=== PATIENT | male | born 1995 | race Caucasian/White ===

== ENCOUNTER 2018-05-03 22:25 | Emergency (ER) | payer BC ==
--- NOTE | 2018-05-03 23:03 | ER ---
Nurse's Notes [facility] Name: Reinaldo Caputo Age: 22 yrs Sex: Male : 1995 Arrival Date: 05/03/2018 Time: 22:32 Bed 7 Private MD: Diagnosis: Folliculitis;Tinea corporis Presentation: 05/03 22:44 Presenting complaint: Patient states: dryness, redness and swelling to head of penis. ed1 Also my urine stream is split. Transition of care: patient was not received from another setting of care. Onset of symptoms was May 03, 2018. Risk Assessment: Do you want to hurt yourself or someone else?. Initial Sepsis Screen: Does the patient meet any 2 criteria? No. Patient's initial sepsis screen is negative. Does the patient have a suspected source of infection? No. Patient's initial sepsis screen is negative. Care prior to arrival: None. 22:44 Method Of Arrival: Ambulatory ed1 22:44 Acuity: FELECIA 4 ed1 Historical: - Allergies: 22:57 Sulfa (Sulfonamide Antibiotics); jd3 - Home Meds: 22:57 None [Active]; jd3 - PMHx: 22:57 kidney problems(resolved); jd3 - PSHx: 22:57 right foot; jd3 - Immunization history:: Adult Immunizations up to date. - Social history:: Smoking status: unknown. - Ebola Screening: : Patient negative for fever greater than or equal to 101.5 degrees Fahrenheit, and additional compatible Ebola Virus Disease symptoms. - Family history:: not pertinent. - Hospitalizations: : No recent hospitalization is reported. Screenin:59 Abuse screen: Denies threats or abuse. Nutritional screening: No deficits noted. jd3 Tuberculosis screening: No symptoms or risk factors identified. Fall Risk Ambulatory Aid- None/Bed Rest/Nurse Assist (0 pts). Gait- Normal/Bed Rest/Wheelchair (0 pts) Mental Status- Oriented to own ability (0 pts). Total Sahni Fall Scale indicates No Risk (0-24 pts). Assessment: 22:57 General: Appears in no apparent distress. uncomfortable, Behavior is calm, cooperative, jd3 appropriate for age. Pain: Denies pain. Neuro: Level of Consciousness is awake, alert, obeys commands, Oriented to person, place, time, situation. Cardiovascular: Capillary refill < 3 seconds Patient's skin is warm and dry. Respiratory: Airway is patent Respiratory effort is even, unlabored, Respiratory pattern is regular, symmetrical. GI: No signs and/or symptoms were reported involving the gastrointestinal system. : Reports scaliness and dryness to genitals. EENT: No signs and/or symptoms were reported regarding the EENT system. Derm: Skin is intact, Skin is dry, Skin is normal, Skin temperature is warm. Musculoskeletal: Circulation, motion, and sensation intact. Range of motion: intact in all extremities. Vital Signs: 22:44 BP 148 / 87; Pulse 79; Resp 20; Temp 98.7(O); Pulse Ox 98% on R/A; Weight 117.93 kg; ed1 Height 5 ft. 11 in. (180.34 cm); 22:44 Body Mass Index 36.26 (117.93 kg, 180.34 cm) ed1 ED Course: 22:32 Patient arrived in ED. 22:40 Cruz Vivar MD is Attending Physician. rn 22:45 Triage completed. ed1 22:47 Arm band placed on. ed1 22:55 Samuel Amezcua RN is Primary Nurse. jd3 22:58 Patient has correct armband on for positive identification. Placed in gown. Bed in low jd3 position. Call light in reach. Side rails up X 1. Adult w/ patient. 23:17 No provider procedures requiring assistance completed. Patient did not have IV access jd3 during this emergency room visit. Administered Medications: 23:12 Drug: DiFLUcan 200 mg Route: PO; jd3 23:17 Follow up: Response: No adverse reaction jd3 23:12 Drug: Clindamycin 300 mg Route: PO; jd3 23:18 Follow up: Response: No adverse reaction jd3 Outcome: 23:02 Discharge ordered by . rn 23:17 Discharged to home ambulatory, with friend. jd3 23:17 Condition: stable 23:17 Discharge instructions given to patient, friend, Instructed on discharge instructions, follow up and referral plans. medication usage, Demonstrated understanding of instructions, follow-up care, medications, Prescriptions given X 2. 23:21 Patient left the ED. jd3 Signatures: Colleen Lim Cruz Vivar MD MD rn Riggs, Erika, RN RN ed1 Samuel Amezcua RN RN jd3
--- NOTE | 2018-05-03 23:03 | EDPHYS ---
Physician Documentation [facility] Name: Reinaldo Caputo Age: 22 yrs Sex: Male : 1995 Arrival Date: 05/03/2018 Time: 22:32 Bed 7 Private MD: ED Physician Cruz Vivar HPI: 05/03 22:58 This 22 yrs old Male presents to ER via Ambulatory with complaints of scrotal rn skin changes. 22:58 The patient presents with scrotal pain, of the left side, without swelling, with rn erythema. 22:59 Onset: The symptoms/episode began/occurred 1 week(s) ago. Associated signs and rn symptoms: Pertinent negatives: dysuria, fever, hematuria. Severity of symptoms: At their worst the symptoms were mild, in the emergency department the symptoms are unchanged. The patient has not experienced similar symptoms in the past. No trauma, + skin changes with scaliness, and erythema, no itching. No trauma. No penile discharge, no concern for STD.. Historical: - Allergies: 22:57 Sulfa (Sulfonamide Antibiotics); jd3 - Home Meds: 22:57 None [Active]; jd3 - PMHx: 22:57 kidney problems(resolved); jd3 - PSHx: 22:57 right foot; jd3 - Immunization history:: Adult Immunizations up to date. - Social history:: Smoking status: unknown. - Ebola Screening: : Patient negative for fever greater than or equal to 101.5 degrees Fahrenheit, and additional compatible Ebola Virus Disease symptoms. - Family history:: not pertinent. - Hospitalizations: : No recent hospitalization is reported. ROS: 22:59 Constitutional: Negative for fever, chills, and weight loss, : + scrotal erythema and rn scaliness Exam: 22:59 Constitutional: This is a well developed, well nourished patient who is awake, alert, rn and in no acute distress. Male : + left 3cm area of scrotal wall with mild erythema and dry skin, patchy, no skin sloughing, no fluctuance, no tenderness of testicles. Vital Signs: 22:44 BP 148 / 87; Pulse 79; Resp 20; Temp 98.7(O); Pulse Ox 98% on R/A; Weight 117.93 kg; ed1 Height 5 ft. 11 in. (180.34 cm); 22:44 Body Mass Index 36.26 (117.93 kg, 180.34 cm) ed1 MDM: 22:40 Patient medically screened. rn 22:59 Differential diagnosis: folliculitis, fungal infection. Data reviewed: vital signs, rn nurses notes, and as a result, I will discharge patient. Counseling: I had a detailed discussion with the patient and/or guardian regarding: the historical points, exam findings, and any diagnostic results supporting the discharge/admit diagnosis, the need for outpatient follow up, to return to the emergency department if symptoms worsen or persist or if there are any questions or concerns that arise at home. Special discussion: I discussed with the patient/guardian in detail that at this point there is no indication for admission to the hospital. It is understood, however, that if the symptoms persist or worsen the patient needs to return immediately for re-evaluation. Administered Medications: 23:12 Drug: DiFLUcan 200 mg Route: PO; jd3 23:17 Follow up: Response: No adverse reaction jd3 23:12 Drug: Clindamycin 300 mg Route: PO; jd3 23:18 Follow up: Response: No adverse reaction jd3 Disposition: 05/03/18 23:02 Discharged to Home. Impression: Folliculitis, Tinea corporis. - Condition is Stable. - Discharge Instructions: Folliculitis. - Prescriptions for Clindamycin HCl 300 mg Oral Capsule - take 1 capsule by ORAL route every 6 hours for 10 days; 40 capsule. Nystatin- Triamcinolone 100,000-0.1 unit/g-% Topical Cream - apply 1 application by TOPICAL route 2 times per day; 1 tube. - Medication Reconciliation Form, Thank You Letter, Antibiotic Education, Prescription Opioid Use form. - Follow up: Private Physician; When: As needed; Reason: Recheck today's complaints, Re-evaluation by your physician. - Problem is new. - Symptoms are unchanged. Signatures: Cruz Vivar MD MD rn Davies, Jonathon, RN RN jd3 Corrections: (The following items were deleted from the chart) 23:21 23:02 05/03/2018 23:02 Discharged to Home. Impression: Folliculitis; Tinea corporis. jd3 Condition is Stable. Forms are Medication Reconciliation Form, Thank You Letter, Antibiotic Education, Prescription Opioid Use. Follow up: Private Physician; When: As needed; Reason: Recheck today's complaints, Re-evaluation by your physician. Problem is new. Symptoms are unchanged. rn
[2018-05-03] MEDS ORDERED: CLINDAMYCIN HCL 150 MG CAP ONE (23:17)
[2018-05-03] MEDS ORDERED: FLUCONAZOLE 100 MG TAB ONE (23:17)
[2018-05-03 23:40] VITALS: BP 148/87; TEMP 98.7; O2SAT 98
== END 2018-05-03 23:21 | disposition home or self-care (01) ==
LOC: ER 22:25
DX: L73.9 Follicular disorder, unspecified (principal); B35.4 Tinea corporis
CPT/HCPCS: 99283

== ENCOUNTER 2018-07-20 03:15 | Emergency (ER) | payer BC ==
[2018-07-20] MEDS ORDERED: MORPHINE 2 MG/ML SYR ONE ×2 (03:42→05:23)
[2018-07-20] MEDS ORDERED: CIPROFLOXACIN 400mg IV 400 MG/200 ML BAG IV ONE (03:42)
[2018-07-20] MEDS ORDERED: ONDANSETRON 4 MG/2 ML VIAL ONE ×2 (03:42→07:28)
[2018-07-20] MEDS ORDERED: NA CHLORIDE 0.9% 1,000 ML ONE ×2 (03:42→05:23)
[2018-07-20 04:12] LABS: Absolute Lymphocytes (CBC) 0.6 K/uL (0.7-4.9); Absolute Monocytes 1.3 K/uL (0.1-1.3); Absolute Neutrophil 17.6 K/uL (1.8-8.0); Basophils % 0.2 % (0-1.3); Eosinophils % 0.5 % (0-4.4); Hematocrit 50.8 % (39.6-49.0); Lymphocytes % 3.3 % (15.3-44.8); MPV 10.5 fL (7.6-11.3); Monocytes % 6.5 % (3.3-12.3); RBC Red Blood Cell Count 5.63 M/uL (4.33-5.43)
[2018-07-20 04:29] LABS: Albumin 4.7 g/dL (3.4-5.0); Bilirubin Direct 0.3 mg/dL (0-0.2); Bilirubin Total 1.5 mg/dL (0.2-1.0); Potassium 3.9 mmol/L (3.5-5.1); Protein, Total 9.2 g/dL (6.4-8.2)
[2018-07-20 04:38] LABS: Platelet Estimate ADEQ; Urine White Blood Cell Casts OK
[2018-07-20 04:39] LABS: Blood Morphology Comment NOT SEEN (NOT SEEN)
[2018-07-20] MEDS ORDERED: MORPHINE 4 MG/ML SYR ONE (06:07)
[2018-07-20] MEDS ORDERED: FAMOTIDINE 20 MG/2 ML VIAL IV ONE (06:07)
--- NOTE | 2018-07-20 07:09 | RAD REPORT ---
EXAM DESCRIPTION: RAD - Abdomen Single View - 07/20/2018 4:12 am CLINICAL HISTORY: Abdominal pain, vomiting, diarrhea COMPARISON: None. FINDINGS: Bowel gas pattern is non-specific. No obstruction, free air or pneumatosis. Left pelvic c alcification is most likely a phlebolith. No significant bony findings IMPRESSION: Negative KUB examination for acute or significant finding.
--- NOTE | 2018-07-20 07:33 | EDPHYS ---
Physician Documentation [facility] Name: Reinaldo Caputo Age: 22 yrs Sex: Male : 1995 Arrival Date: 07/20/2018 Time: 03:17 Bed 16 Private MD: Stanley Goldman ED Physician Stuart Rodriguez HPI: 07/20 03:27 This 22 yrs old Male presents to ER via Ambulatory with complaints of cam Abdominal Cramping, Vomiting/Diarrhea. 03:27 The patient presents with abdominal pain in the upper abdomen, in the lower abdomen. cam Onset: The symptoms/episode began/occurred just prior to arrival, this morning. The patient presents to the emergency department with nausea, vomiting, diarrhea, that is continuous, abdominal pain. Onset: The symptoms/episode began/occurred just prior to arrival. Possible causes: unknown. The symptoms are aggravated by nothing. The symptoms are alleviated by nothing. remaining still. The symptoms do not radiate. Associated signs and symptoms: Pertinent positives: abdominal pain, diarrhea, nausea, vomiting. Associated signs and symptoms: none. Historical: - Allergies: 03:26 Sulfa (Sulfonamide Antibiotics); lp1 - Home Meds: 03:26 None [Active]; lp1 - PMHx: 03:26 kidney problems(resolved); lp1 - PSHx: 03:26 foot surgery; lp1 - Immunization history:: Adult Immunizations up to date. - Social history:: Smoking status: Patient/guardian denies using tobacco. - Ebola Screening: : No symptoms or risks identified at this time. - Family history:: not pertinent. ROS: 03:27 Constitutional: Negative for fever, chills, and weight loss, Eyes: Negative for injury, cam pain, redness, and discharge, ENT: Negative for injury, pain, and discharge, Neck: Negative for injury, pain, and swelling, Cardiovascular: Negative for chest pain, palpitations, and edema, Respiratory: Negative for shortness of breath, cough, wheezing, and pleuritic chest pain, Back: Negative for injury and pain, : Negative for injury, bleeding, discharge, and swelling, MS/Extremity: Negative for injury and deformity, Skin: Negative for injury, rash, and discoloration, Neuro: Negative for headache, weakness, numbness, tingling, and seizure, Psych: Negative for depression, anxiety, suicide ideation, homicidal ideation, and hallucinations, Allergy/Immunology: Negative for hives, rash, and allergies, Endocrine: Negative for neck swelling, polydipsia, polyuria, polyphagia, and marked weight changes, Hematologic/Lymphatic: Negative for swollen nodes, abnormal bleeding, and unusual bruising. 03:27 Abdomen/GI: Positive for abdominal pain, nausea and vomiting, diarrhea. Exam: 03:27 Constitutional: This is a well developed, well nourished patient who is awake, alert, cam and in no acute distress. Head/Face: Normocephalic, atraumatic. Eyes: Pupils equal round and reactive to light, extra-ocular motions intact. Lids and lashes normal. Conjunctiva and sclera are non-icteric and not injected. Cornea within normal limits. Periorbital areas with no swelling, redness, or edema. ENT: Nares patent. No nasal discharge, no septal abnormalities noted. Tympanic membranes are normal and external auditory canals are clear. Oropharynx with no redness, swelling, or masses, exudates, or evidence of obstruction, uvula midline. Mucous membranes moist. Neck: Trachea midline, no thyromegaly or masses palpated, and no cervical lymphadenopathy. Supple, full range of motion without nuchal rigidity, or vertebral point tenderness. No Meningismus. Chest/axilla: Normal chest wall appearance and motion. Nontender with no deformity. No lesions are appreciated. Cardiovascular: Regular rate and rhythm with a normal S1 and S2. No gallops, murmurs, or rubs. Normal PMI, no JVD. No pulse deficits. Respiratory: Lungs have equal breath sounds bilaterally, clear to auscultation and percussion. No rales, rhonchi or wheezes noted. No increased work of breathing, no retractions or nasal flaring. Back: No spinal tenderness. No costovertebral tenderness. Full range of motion. Male : Normal genitalia with no discharge or lesions. Skin: Warm, dry with normal turgor. Normal color with no rashes, no lesions, and no evidence of cellulitis. MS/ Extremity: Pulses equal, no cyanosis. Neurovascular intact. Full, normal range of motion. Neuro: Awake and alert, GCS 15, oriented to person, place, time, and situation. Cranial nerves II-XII grossly intact. Motor strength 5/5 in all extremities. Sensory grossly intact. Cerebellar exam normal. Normal gait. Psych: Awake, alert, with orientation to person, place and time. Behavior, mood, and affect are within normal limits. 03:27 Abdomen/GI: Inspection: abdomen appears normal, Bowel sounds: normal, Palpation: mild abdominal tenderness, in all quadrants, Liver: no appreciated palpable abnormalities, Hernia: not appreciated. Vital Signs: 03:27 BP 147 / 102; Pulse 113; Resp 18; Temp 97.6(O); Pulse Ox 96% on R/A; Weight 108.86 kg; lp1 Height 5 ft. 11 in. (180.34 cm); Pain 10/10; 03:47 BP 133 / 80; Pulse 110; Resp 18; Pulse Ox 96% on R/A; lp1 04:30 BP 130 / 84; Pulse 92; Resp 18; Pulse Ox 98% on 2 lpm NC; lp1 05:15 BP 125 / 81; Pulse 102; Resp 18; Pulse Ox 100% on 2 lpm NC; lp1 06:00 BP 119 / 78; Pulse 96; Resp 18; Pulse Ox 100% on 2 lpm NC; Pain 7/10; lp1 06:45 BP 124 / 78; Pulse 96; Resp 18; Pulse Ox 100% on 2 lpm NC; lp1 07:21 BP 124 / 78; Pulse 98; Resp 18; Pulse Ox 98% on R/A; sg 09:43 BP 116 / 72; Pulse 100; Resp 17; Pulse Ox 98% on R/A; sg 03:27 Body Mass Index 33.47 (108.86 kg, 180.34 cm) lp1 MDM: 03:18 Patient medically screened. [facility] 03:32 Data reviewed: vital signs, nurses notes, lab test result(s), radiologic studies, plain cam films. 07:30 Counseling: I had a detailed discussion with the patient and/or guardian regarding: the pm1 historical points, exam findings, and any diagnostic results supporting the discharge/admit diagnosis, lab results, radiology results, the need for outpatient follow up, to return to the emergency department if symptoms worsen or persist or if there are any questions or concerns that arise at home. 07:30 Special discussion: Based on the patient's Hx, exam, and Dx evaluation, there is no pm1 indication for emergent surgery or inpatient Tx. It is understood by the patient/guardian that if the Sx's persist or worsen they need to return immediately for re-evaluation. Discussed mono diagnosis and splenomegaly with patient. Patient is currently in the [employer]. Explained the importance of no activities with the risk of contact until resolution of splenomegaly and clearance by next MD. 07/20 03:25 Order name: Basic Metabolic Panel; Complete Time: 04:59 [facility] 07/20 03:25 Order name: CBC with Diff; Complete Time: 04:59 [facility] 07/20 03:25 Order name: Creatinine for Radiology; Complete Time: 04:59 [facility] 07/20 03:25 Order name: Hepatic Function; Complete Time: 04:59 [facility] 07/20 03:25 Order name: Lipase; Complete Time: 04:59 [facility] 07/20 04:12 Order name: Abdomen Single View; Complete Time: 07:14 [facility] 07/20 04:39 Order name: CBC Smear Scan [facility] 07/20 04:59 Order name: CT Abd/Pelvis - W/Contrast [facility] 07/20 06:04 Order name: US Abdomen Limited; Complete Time: 08:21 [facility] 07/20 06:17 Order name: [place] Screen Profile; Complete Time: 07:14 pm1 07/20 03:25 Order name: IV Saline Lock; Complete Time: 03:46 [facility] 07/20 03:25 Order name: Labs collected and sent; Complete Time: 03:46 [facility] Administered Medications: 03:45 Drug: NS 0.9% 1000 ml Route: IV; Rate: 1 bolus; Site: left antecubital; lp1 04:45 Follow up: IV Status: Completed infusion; IV Intake: 1000ml lp1 03:45 Drug: morphine 2 mg Route: IVP; Site: left antecubital; lp1 04:15 Follow up: Response: Pain is decreased lp1 03:46 Drug: Zofran 4 mg Route: IVP; Site: left antecubital; lp1 04:15 Follow up: Response: Nausea is decreased lp1 04:00 Drug: NS 0.9% 1000 ml Route: IV; Rate: 1 bolus; Site: left antecubital; lp1 05:38 Follow up: IV Status: Completed infusion; IV Intake: 1000ml lp1 04:09 Drug: Cipro 400 mg Volume: 200 ml; Route: IVPB; Infused Over: 60 mins; Site: left lp1 antecubital; 05:17 Follow up: Response: No adverse reaction; IV Status: Completed infusion jd3 05:16 Drug: morphine 2 mg Route: IVP; Site: left antecubital; jd3 05:38 Follow up: Response: Pain is decreased lp1 05:16 Drug: NS 0.9% 1000 ml Route: IV; Rate: 1 bolus; Site: left antecubital; jd3 06:49 Follow up: IV Status: Completed infusion; IV Intake: 1000ml lp1 06:03 Drug: morphine 4 mg Route: IVP; Site: left antecubital; lp1 06:30 Follow up: Response: Pain is decreased lp1 06:03 Drug: Pepcid 20 mg Route: IVP; Site: left antecubital; lp1 06:30 Follow up: Response: No adverse reaction lp1 07:18 Drug: Zofran 4 mg Route: IVP; Site: left antecubital; sg 07:30 Follow up: Response: No adverse reaction; Nausea unchanged; Vomiting unchanged sg 07:50 Drug: Phenergan 12.5 mg Route: IVP; Site: left antecubital; sg 08:26 Drug: Bentyl 20 mg Route: PO; sg Disposition: 15:35 Co-signature as Attending Physician, Stuart Rodriguez MD I agree with the assessment and cam plan of care. Disposition: 07/20/18 07:32 Discharged to Home. Impression: Infectious mononucleosis, Vomiting, Diarrhea, unspecified, Abdominal tenderness, Elevated white blood cell count. - Condition is Stable. - Discharge Instructions: Abdominal Pain, Adult, Diarrhea, Adult, Nausea and Vomiting, Adult, Nausea and Vomiting, Adult, [id number], Abdominal Pain, Adult, [id number]-[id number], Diarrhea, Adult, [id number]-fh-[id number], Infectious Mononucleosis, Enlarged Spleen. - Prescriptions for Bentyl 20 mg Oral Tablet - take 1 tablet by ORAL route every 6 hours As needed; 20 tablet. Zofran 4 mg Oral Tablet - take 1 tablet by ORAL route every 12 hours As needed; 20 tablet. Cipro 500 mg Oral Tablet - take 1 tablet by ORAL route every 12 hours for 5 days; 9 tablet. promethazine 25 mg Oral Tablet - take 1 tablet by ORAL route every 6 hours As needed prn , if zofran not effective; 10 tablet. Pepcid 20 mg Oral Tablet - take 1 tablet by ORAL route every 12 hours for 10 days; 20 tablet. - School release form, Work release form, Family Work Release, Medication Reconciliation Form, Thank You Letter, Antibiotic Education, Prescription Opioid Use form. - Follow up: Stanley Goldman; When: 2 - 3 days; Reason: Recheck today's complaints, Continuance of care, Re-evaluation by your physician. - Problem is new. - Symptoms have improved. Signatures: Dispatcher [employer] [facility] Mykel Meneses RN RN Stuart Arana MD MD cha Pena, Laura RN RN lp1 Arnulfo Hernandez NP SETTLEMENT WORKER pm1 Marti Anderson mh5 Samuel Amezcua RN RN jd3 Corrections: (The following items were deleted from the chart) 04:12 03:26 Abdomen With Erect+[id number].BRZ ordered. [facility] 10:32 07:32 07/20/2018 07:32 Discharged to Home. Impression: Infectious mh5 mononucleosisVomiting; Diarrhea, unspecified; Abdominal tenderness; Elevated white blood cell count. Condition is Stable. Discharge Instructions: Abdominal Pain, Adult, Diarrhea, Adult, Nausea and Vomiting, Adult, Nausea and Vomiting, Adult, [id number], Abdominal Pain, Adult, Ailj-rl-Wdlz, Diarrhea, Adult, Udnj-[id number]-Rgoi, Infectious Mononucleosis, Enlarged Spleen. Prescriptions for Bentyl 20 mg Oral Tablet - take 1 tablet by ORAL route every 6 hours As needed; 20 tablet, Zofran 4 mg Oral Tablet - take 1 tablet by ORAL route every 12 hours As needed; 20 tablet, Cipro 500 mg Oral Tablet - take 1 tablet by ORAL route every 12 hours for 5 days; 9 tablet, promethazine 25 mg Oral Tablet - take 1 tablet by ORAL route every 6 hours As needed prn , if zofran not effective; 10 tablet, Pepcid 20 mg Oral Tablet - take 1 tablet by ORAL route every 12 hours for 10 days; 20 tablet. and Forms are Medication Reconciliation Form, Thank You Letter, Antibiotic Education, Prescription Opioid Use. Follow up: Stanley Goldman; When: 2 - 3 days; Reason: Recheck today's complaints, Continuance of care, Re-evaluation by your physician. Problem is new. Symptoms have improved. pm1
--- NOTE | 2018-07-20 07:33 | ER ---
Nurse's Notes [facility] Name: Reinaldo Caputo Age: 22 yrs Sex: Male : 1995 Arrival Date: 07/20/2018 Time: 03:17 Bed 16 Private MD: Stanley Goldman Diagnosis: Vomiting;Diarrhea, unspecified;Abdominal tenderness;Elevated white blood cell count;Infectious mononucleosis Presentation: 07/20 03:24 Presenting complaint: Patient states: Generalized abdominal pain, vomiting, diarrhea lp1 that began suddenly at 0000; Denies any fever. Transition of care: patient was not received from another setting of care. Onset of symptoms was July 20, 2018 at 00:00. Risk Assessment: Do you want to hurt yourself or someone else? Patient reports no desire to harm self or others. Care prior to arrival: None. 03:24 Method Of Arrival: Ambulatory lp1 03:24 Acuity: FELECIA 3 lp1 03:44 Initial Sepsis Screen: Does the patient meet any 2 criteria? HR > 90 bpm. Does the lp1 patient have a suspected source of infection? No. Patient's initial sepsis screen is negative. Triage Assessment: 03:30 General: Appears uncomfortable, Patient to bathroom at this time; Noted to have episode lp1 of diarrhea. Historical: - Allergies: 03:26 Sulfa (Sulfonamide Antibiotics); lp1 - Home Meds: 03:26 None [Active]; lp1 - PMHx: 03:26 kidney problems(resolved); lp1 - PSHx: 03:26 foot surgery; lp1 - Immunization history:: Adult Immunizations up to date. - Social history:: Smoking status: Patient/guardian denies using tobacco. - Ebola Screening: : No symptoms or risks identified at this time. - Family history:: not pertinent. Screenin:28 Abuse screen: Denies threats or abuse. Denies injuries from another. Nutritional lp1 screening: No deficits noted. Tuberculosis screening: No symptoms or risk factors identified. Fall Risk None identified. Assessment: 03:28 General: Appears uncomfortable, ill, Behavior is appropriate for age. Pain: Complains lp1 of pain in abdomen Pain currently is 10 out of 10 on a pain scale. Quality of pain is described as sharp. Neuro: Level of Consciousness is awake, alert, obeys commands. Cardiovascular: Patient's skin is warm and dry. Respiratory: Respiratory effort is even, unlabored. GI: Bowel sounds hyperactive in right upper quadrant, left upper quadrant, right lower quadrant and left lower quadrant Abdomen is tender to palpation X 4 quads. Reports diarrhea, nausea, vomiting. : No signs and/or symptoms were reported regarding the genitourinary system. EENT: No signs and/or symptoms were reported regarding the EENT system. Derm: Skin is intact, Skin is clammy, Skin is pale. Musculoskeletal: No deficits noted. 04:09 Reassessment: Patient returned from radiology. lp1 04:22 Reassessment: Patient noted to have O2 at 88% on RA while asleep; When awake patient at lp1 97% RA; O2 via NC at 2L applied at this time. 05:32 Reassessment: Patient returned from CT at this time. lp1 05:50 Reassessment: Patient states pain to abdomen returning at this time; Provider notified, lp1 no complaint of nausea. 06:48 Reassessment: Ultrasound at bedside. lp1 07:15 Reassessment: pt reports vomiting, output of 50 mL noted in emesis bag, Arnulfo MOSQUEDA sg notified, orders received, pt medicated, See EMAR. 07:24 Reassessment: Patient appears in no apparent distress at this time. Patient is alert, sg oriented x 3, equal unlabored respirations, skin warm/dry/pink. Arnulfo MOSQUEDA at bedside updating pt and pt family on results and POC, awaiting new orders at this time Patient states symptoms have not improved. 07:34 Reassessment: orders received for PO bentyl, provider notified pt continues to vomit. sg GI: Pt is actively vomiting bile. 08:27 Reassessment: Patient is alert, oriented x 3, equal unlabored respirations, skin sg warm/dry/pink. pt sleeping, awakens to verbal stimuli, pt drowsy, bentyl PO administered, pt family/friend remains at bedside at this time, call mazariegos remains within reach, SRx2, bed is in low and locked position, will dispo to home with family/friend. 09:20 Reassessment: Patient appears in no apparent distress at this time. pt observed laying sg supine in bed, resp even and unlabored, eyes closed, pt awakens easily to verbal stimuli, attempt to sit up for transfer into wheelchair to dc to home, pt unable to remain sitting upright at this time, will continue to monitor. Vital Signs: 03:27 BP 147 / 102; Pulse 113; Resp 18; Temp 97.6(O); Pulse Ox 96% on R/A; Weight 108.86 kg; lp1 Height 5 ft. 11 in. (180.34 cm); Pain 10/10; 03:47 BP 133 / 80; Pulse 110; Resp 18; Pulse Ox 96% on R/A; lp1 04:30 BP 130 / 84; Pulse 92; Resp 18; Pulse Ox 98% on 2 lpm NC; lp1 05:15 BP 125 / 81; Pulse 102; Resp 18; Pulse Ox 100% on 2 lpm NC; lp1 06:00 BP 119 / 78; Pulse 96; Resp 18; Pulse Ox 100% on 2 lpm NC; Pain 7/10; lp1 06:45 BP 124 / 78; Pulse 96; Resp 18; Pulse Ox 100% on 2 lpm NC; lp1 07:21 BP 124 / 78; Pulse 98; Resp 18; Pulse Ox 98% on R/A; sg 09:43 BP 116 / 72; Pulse 100; Resp 17; Pulse Ox 98% on R/A; sg 03:27 Body Mass Index 33.47 (108.86 kg, 180.34 cm) lp1 ED Course: 03:17 Patient arrived in ED. am2 03:17 Stanley Goldman MD is Private Physician. am2 03:18 Stuart Rodriguez MD is Attending Physician. cam 03:23 Kenzie Hernandez RN is Primary Nurse. lp1 03:25 Triage completed. lp1 03:27 Arm band placed on left wrist. lp1 03:30 Patient has correct armband on for positive identification. Pulse ox on. NIBP on. lp1 03:44 Inserted saline lock: 20 gauge in left antecubital area, using aseptic technique. Blood lp1 collected. By MAHIN Hopper. 04:10 Patient moved to radiology via wheelchair. kw 04:10 X-ray completed. Patient tolerated procedure poorly. kw 04:10 Patient moved back from radiology. kw 04:12 Abdomen Single View In Process Unspecified. EDMS 05:38 CT completed. Patient tolerated procedure well. Patient moved to CT via stretcher. Patient moved back from CT. 05:53 CT Abd/Pelvis - W/Contrast In Process Unspecified. EDMS 06:07 No provider procedures requiring assistance completed. lp1 06:10 [facility] pm1 06:25 Initial lab(s) drawn, by me, sent to lab. lp1 07:06 US Abdomen Limited In Process Unspecified. EDMS 07:12 Primary Nurse role handed off by Kenzie Hernandez, MAHIN sg 07:12 Mykel Meneses RN is Primary Nurse. sg 07:32 tSanley Goldman MD is Referral Physician. pm1 Administered Medications: 03:45 Drug: NS 0.9% 1000 ml Route: IV; Rate: 1 bolus; Site: left antecubital; lp1 04:45 Follow up: IV Status: Completed infusion; IV Intake: 1000ml lp1 03:45 Drug: morphine 2 mg Route: IVP; Site: left antecubital; lp1 04:15 Follow up: Response: Pain is decreased lp1 03:46 Drug: Zofran 4 mg Route: IVP; Site: left antecubital; lp1 04:15 Follow up: Response: Nausea is decreased lp1 04:00 Drug: NS 0.9% 1000 ml Route: IV; Rate: 1 bolus; Site: left antecubital; lp1 05:38 Follow up: IV Status: Completed infusion; IV Intake: 1000ml lp1 04:09 Drug: Cipro 400 mg Volume: 200 ml; Route: IVPB; Infused Over: 60 mins; Site: left lp1 antecubital; 05:17 Follow up: Response: No adverse reaction; IV Status: Completed infusion jd3 05:16 Drug: morphine 2 mg Route: IVP; Site: left antecubital; jd3 05:38 Follow up: Response: Pain is decreased lp1 05:16 Drug: NS 0.9% 1000 ml Route: IV; Rate: 1 bolus; Site: left antecubital; jd3 06:49 Follow up: IV Status: Completed infusion; IV Intake: 1000ml lp1 06:03 Drug: morphine 4 mg Route: IVP; Site: left antecubital; lp1 06:30 Follow up: Response: Pain is decreased lp1 06:03 Drug: Pepcid 20 mg Route: IVP; Site: left antecubital; lp1 06:30 Follow up: Response: No adverse reaction lp1 07:18 Drug: Zofran 4 mg Route: IVP; Site: left antecubital; sg 07:30 Follow up: Response: No adverse reaction; Nausea unchanged; Vomiting unchanged sg 07:50 Drug: Phenergan 12.5 mg Route: IVP; Site: left antecubital; sg 08:26 Drug: Bentyl 20 mg Route: PO; sg Intake: 04:45 IV: 1000ml; Total: 1000ml. lp1 05:38 IV: 1000ml; Total: 2000ml. lp1 06:49 IV: 1000ml; Total: 3000ml. lp1 Outcome: 07:32 Discharge ordered by . pm1 10:32 Patient left the ED. 5 Signatures: Dispatcher [employer] EDMS Mykel Meneses RN RN sg Anderson, Corey, MD MD cha Hagler, Ervin eh Whitley, Kimberlee kw Pena, Laura, RN RN lp1 Arnulfo Hernandez, CLAU [employer] 1 Marti Anderson [facility] Porsche Cochran Samuel Brooks RN RN jd3 Corrections: (The following items were deleted from the chart) 03:44 03:27 Resp 18bpm; Temp 97.6F Oral; 108.86 kg; Height 5 ft. 11 in.; BMI: 33.4; Pain lp1 10; lp1 04:12 04:11 In radiology for Abdomen With Erect+[email or web address]. EDMS EDMS 06:33 05:00 General: Appears uncomfortable, Patient to bathroom at this time; Noted to have lp1 episode of diarrhea. lp1
[2018-07-20] MEDS ORDERED: PROMETHAZINE 25 MG/ML VIAL ONE (07:58)
--- NOTE | 2018-07-20 08:20 | RAD REPORT ---
EXAM DESCRIPTION: US - Abdomen Exam Limited - 07/20/2018 7:09 am CLINICAL HISTORY: Abdominal pain COMPARISON: CT study July 20 FINDINGS: No gallstones, sludge or other abnormalities within the gallbladder lumen. There is no wal l thickening or pericholecystic fluid. No common duct stone or biliary tree dilatation identified. IMPRESSION: Normal gallbladder and biliary tree ultrasound.
[2018-07-20] MEDS ORDERED: DICYCLOMINE HCL 10 MG CAP ONE (08:24)
--- NOTE | 2018-07-20 10:32 | RAD REPORT ---
EXAM DESCRIPTION: CT - Abdomen Pelvis W Contrast - 07/20/2018 6:45 am CLINICAL HISTORY: Diffuse abdominal pain with nausea, vomiting, and diarrhea. COMPARISON: None. TECHNIQUE: Axial [address] imaging of the abdomen and pelvis performed utilizing intravenous contrast. Reformatted coronal and sagittal images reviewed. A dose reduction technique was utilized with automated exposure control according to patient size. FINDINGS: LOWER THORAX: Lung bases are clear. Heart is normal in size. No pericardial fluid. ABDOMEN: LIVER/GALLBLADDER: Decreased liver attenuation due to fatty infiltration. Normal liver size and cont our. No mass or biliary dilatation. Normal gallbladder. SPLEEN/PANCREAS: Spleen is enlarged to 16.1 cm. No varices. Normal pancreas. KIDNEYS/ADRENAL GLANDS: Normal adrenal glands. Normal right and left kidney. RETROPERITONEAL VESSELS/NODES: Normal caliber aorta and inferior vena cava. No adenopathy. Mesenteri c vessels are well-opacified. BOWEL: Normal stomach. Small bowel loops are unremarkable. Normal appendix along the right pelvic si dewall. There are fluid levels throughout the colon. MESENTERY/PERITONEUM: No adenopathy or ascites. No free air. PELVIS: BLADDER: Normal bladder. GENITAL ORGANS: Prostate. PERITONEUM: No pelvic free fluid or adenopathy. BONES AND SOFT TISSUES: Normal lumbosacral alignment. Vertebral body height is within normal limits. Small endplate Schmorl's nodes along the anterior superior margin of T8 and T9. Intact bony pelvis. Normal hips. IMPRESSION: 1. Small bowel enteritis. 2. Mild hepatic steatosis. 3. Splenomegaly without varices.. Electronically signed by: Nimisha Richmond DO 07/20/2018 6:03 AM CDT Due to temporary technical issues with the PACS/Fluency reporting system, reports are being signed by the in house radiologist as a courtesy to ensure prompt reporting. The interpreting radiologist is f ully responsible for the content of the report.
[2018-07-20 10:38] VITALS: TEMP 97.6
[2018-07-20 10:45] VITALS: O2SAT 98
[2018-07-20 10:46] VITALS: BP 116/72
== END 2018-07-20 10:32 | disposition home or self-care (01) ==
LOC: ER 03:15
DX: B27.90 Infectious mononucleosis, unspecified without complication (principal); D72.829 Elevated white blood cell count, unspecified; R19.7 Diarrhea, unspecified; R10.819 Abdominal tenderness, unspecified site; Z88.2 Allergy status to sulfonamides
CPT/HCPCS: 36415; 74018; 74177; 76705; 80048; 80076; 83690; 85025; 86308; 96361; 96365; 96375; 99284; J0744; J2270; J2405; J2550; J7030; Q9967